=== PATIENT | female | born 1995 | race Caucasian/White ===

== ENCOUNTER 2017-08-05 23:47 | Emergency (ER) | payer OTHER ==
[~2017-08-05] VITALS: Ht 167.6 cm; Wt 75.3 kg
[~2017-08-05 23:47] MED LIST: CEFD300 PO; CEPH500 PO; Cleocin HCl150 MG PO; MAGIC MOUTHWASH; NAPR550 PO; Norco 5-325 Ta1 EACH PO; Percocet 5-3251 EACH PO
[2017-08-06] MEDS ORDERED: Verotin-Gr Cap1 EACH PO (00:02)
[2017-08-06 00:14] LABS: BASOPHILS ABSOLUTE AUTO 0.01 K/mm3 (0.00-0.23); BASOPHILS PERCENT AUTO 0 % (0-2); EOSINOPHILS ABSOLUTE AUTO 0.05 K/mm3 (0.00-0.68); EOSINOPHILS PERCENT AUTO 1 % (0-6); Hematocrit 35.9 % (33.0-51.0); Hemoglobin 12.3 g/dL (11.5-16.0); IMMATURE GRAN ABSOLUTE AUTO 0.04 K/mm3 (0.00-0.10); IMMATURE GRAN PERCENT AUTO 0 % (0-1); LYMPHOCYTES ABSOLUTE AUTO 2.94 K/mm3 (0.84-5.20); LYMPHOCYTES PERCENT AUTO 31 % (21-46); MONOCYTES ABSOLUTE AUTO 0.56 K/mm3 (0.16-1.47); MONOCYTES PERCENT AUTO 6 % (4-13); Mean Corpuscular HGB Conc 34.3 g/dL (31.5-36.5); Mean Corpuscular Volume 90 fL (80-100); Mean Platelet Volume 10.3 fL (9.1-12.4); NEUTROPHILS ABSOLUTE AUTO 5.95 K/mm3 (1.96-9.15); NEUTROPHILS PERCENT AUTO 62 % (41-73); Platelet Count 217 K/mm3 (150-400); RDW Coefficient Variation 12.5 % (11.7-14.2); RDW Standard Deviation 40.9 fL (35.1-46.3); Red Blood Cell Count 3.97 M/mm3 (3.80-5.20); White Blood Cell Count 9.55 K/mm3 (4.00-11.30)
[2017-08-06 00:31] LABS: Alanine Aminotransfer (ALT/SGP 29 U/L (12-78); Albumin/Globulin Ratio 0.8 (0.8-1.8); Alk Phos 56 U/L (50-136); Anion Gap 7 mmol/L (6-16); Aspartate Aminotrans (AST/SGOT 23 U/L (12-37); Bilirubin, Total 0.2 mg/dL (0.1-1.0); Blood Urea Nitrogen 11 mg/dL (8-24); Bun/Creatinine Ratio 19.2 (12.0-20.0); CO2, Blood 26 mmol/L (21-32); Calcium, Blood 8.8 mg/dL (8.5-10.1); Chloride, Blood 106 mmol/L (98-108); Creatinine, Blood 0.57 mg/dL (0.40-1.00); Glomerular Filtration Rate >60 (60-); Glucose, Blood 71 mg/dL (70-99); Potassium, Blood 3.5 mmol/L (3.5-5.5); Sodium, Blood 139 mmol/L (136-145)
== END 2017-08-06 01:06 | disposition home or self-care (01) ==
LOC: ER 23:47
PROVIDERS: Emergency Medicine
DX: O99.89 Other specified diseases and conditions complicating pregnancy, childbirth and the puerperium (principal); R55 Syncope and collapse; Z88.0 Allergy status to penicillin; Z79.899 Other long term (current) drug therapy; O99.332 Smoking (tobacco) complicating pregnancy, second trimester; F17.200 Nicotine dependence, unspecified, uncomplicated; Z3A.19 19 weeks gestation of pregnancy
CPT/HCPCS: 80053; 81000; 85025; 93005; 93010; 96360; 99284; J7030

== ENCOUNTER 2017-12-30 07:47 | Inpatient (IN) | payer OTHER ==
[~2017-12-30] VITALS: Ht 167.6 cm; Wt 100.0 kg
[~2017-12-30 07:47] MED LIST changes: +Verotin-Gr Cap1 EACH PO
[2017-12-30 08:52] LABS: BASOPHILS ABSOLUTE AUTO 0.01 K/mm3 (0.00-0.23); BASOPHILS PERCENT AUTO 0 % (0-2); EOSINOPHILS ABSOLUTE AUTO 0.04 K/mm3 (0.00-0.68); EOSINOPHILS PERCENT AUTO 1 % (0-6); Hematocrit 38.6 % (33.0-51.0); Hemoglobin 13.4 g/dL (11.5-16.0); IMMATURE GRAN ABSOLUTE AUTO 0.08 K/mm3 (0.00-0.10); IMMATURE GRAN PERCENT AUTO 1 % (0-1); LYMPHOCYTES ABSOLUTE AUTO 2.75 K/mm3 (0.84-5.20); LYMPHOCYTES PERCENT AUTO 33 % (21-46); MONOCYTES ABSOLUTE AUTO 0.69 K/mm3 (0.16-1.47); MONOCYTES PERCENT AUTO 8 % (4-13); Mean Corpuscular HGB 31.3 pg (26.0-34.0); Mean Corpuscular HGB Conc 34.7 g/dL (31.5-36.5); Mean Corpuscular Volume 90 fL (80-100); Mean Platelet Volume 11.8 fL (9.1-12.4); NEUTROPHILS ABSOLUTE AUTO 4.86 K/mm3 (1.96-9.15); NEUTROPHILS PERCENT AUTO 58 % (41-73); Platelet Count 187 K/mm3 (150-400); RDW Coefficient Variation 12.5 % (11.7-14.2); Red Blood Cell Count 4.28 M/mm3 (3.80-5.20); White Blood Cell Count 8.43 K/mm3 (4.00-11.30)
[2017-12-31 09:41] LABS: PCO2 Cord - Arterial 60.5 mmHg (40-50); PO2 Cord - Arterial 25.2 mmHg (16-20)
[2017-12-31 09:43] LABS: PCO2 Cord - Venous 57.1 mmHg (40-50); PO2 Cord - Venous 28.9 mmHg (28-32); pH Umbilical Cord - Venous 7.31 (7.26-7.35)
[2018-01-01 05:46] LABS: Hematocrit 28.8 % (33.0-51.0); Hemoglobin 9.9 g/dL (11.5-16.0); Mean Corpuscular HGB 31.3 pg (26.0-34.0); Mean Corpuscular HGB Conc 34.4 g/dL (31.5-36.5); Mean Corpuscular Volume 91 fL (80-100); Platelet Count 147 K/mm3 (150-400); RDW Coefficient Variation 12.9 % (11.7-14.2); RDW Standard Deviation 42.4 fL (35.1-46.3); Red Blood Cell Count 3.16 M/mm3 (3.80-5.20); White Blood Cell Count 12.99 K/mm3 (4.00-11.30)
[2018-01-02] MEDS ORDERED: Percocet 5-3251 EACH PO (10:55)
[2018-01-02] MEDS ORDERED: IBU800 MG PO (10:56)
== END 2018-01-02 13:40 | disposition home or self-care (01) | DRG 766 ==
LOC: BC 07:47
PROVIDERS: Nurse Practitioner Obstetrics & Gynecology; Obstetrics & Gynecology
PROC: 10907ZC Drainage of Amniotic Fluid, Therapeutic from Products of Conception, Via Natural or Artificial Opening (ICD-10-PCS; 2017-12-30)
PROC: 3E0P7VZ Introduction of Hormone into Female Reproductive, Via Natural or Artificial Opening (ICD-10-PCS; 2017-12-30)
PROC: 3E033VJ Introduction of Other Hormone into Peripheral Vein, Percutaneous Approach (ICD-10-PCS; 2017-12-30)
PROC: 4A1H7CZ Monitoring of Products of Conception, Cardiac Rate, Via Natural or Artificial Opening (ICD-10-PCS; 2017-12-30)
PROC: 10H073Z Insertion of Monitoring Electrode into Products of Conception, Via Natural or Artificial Opening (ICD-10-PCS; 2017-12-30)
PROC: 00HU33Z Insertion of Infusion Device into Spinal Canal, Percutaneous Approach (ICD-10-PCS; 2017-12-31)
PROC: 3E0R3BZ Introduction of Anesthetic Agent into Spinal Canal, Percutaneous Approach (ICD-10-PCS; 2017-12-31)
PROC: 10D00Z1 Extraction of Products of Conception, Low, Open Approach (ICD-10-PCS; principal; 2017-12-31 08:45)
DX: O99.334 Smoking (tobacco) complicating childbirth (principal); F17.200 Nicotine dependence, unspecified, uncomplicated; O76 Abnormality in fetal heart rate and rhythm complicating labor and delivery; O32.4XX0 Maternal care for high head at term, not applicable or unspecified; Z3A.40 40 weeks gestation of pregnancy; Z37.0 Single live birth; Z88.0 Allergy status to penicillin; Z88.1 Allergy status to other antibiotic agents
CPT/HCPCS: 36415; 51702; 82803; 85025; 85027; 86850; 86900; 86901; J0330; J0690; J1885; J2590; J2710; J2765; J3010; J7120

== ENCOUNTER → 2018-02-03 | Outpatient (CLI) | payer OTHER ==
[~2018-02-03] MED LIST changes: +HYDR1TAB94 PO; +IBU800 MG PO; +LOPE2C PO; +Zofran8 MG PO
[2018-02-03 11:52] LABS: Hematocrit 37.4 % (33.0-51.0); Hemoglobin 12.9 g/dL (11.5-16.0); Mean Corpuscular HGB 30.6 pg (26.0-34.0); Mean Corpuscular HGB Conc 34.5 g/dL (31.5-36.5); Mean Corpuscular Volume 89 fL (80-100); Mean Platelet Volume 10.1 fL (9.1-12.4); Platelet Count 187 K/mm3 (150-400); RDW Coefficient Variation 12.5 % (11.7-14.2); RDW Standard Deviation 40.6 fL (35.1-46.3); Red Blood Cell Count 4.22 M/mm3 (3.80-5.20); White Blood Cell Count 5.58 K/mm3 (4.00-11.30)
[2018-02-03 13:22] LABS: BASOPHILS PERCENT MAN 0 % (0-2); EOSINOPHILS PERCENT MAN 0 % (0-6); LYMPHOCYTES ABSOLUTE MAN 2.17 K/mm3 (0.84-5.20); LYMPHOCYTES PERCENT MAN 39 % (21-46); MONOCYTES ABSOLUTE MAN 0.27 K/mm3 (0.16-1.47); MONOCYTES PERCENT MAN 5 % (4-13); SEG NEUTROPHILS PERCENT MAN 24 % (41-73); TOTAL CELLS COUNTED 100
[2018-02-03 13:23] LABS: BAND PERCENT MAN 32 % (0-8); NEUTROPHILS ABSOLUTE MAN 3.12 K/mm3 (1.96-9.15)
== END ==
LOC: LAB EV 11:47 → LAB SHORT 11:47
PROVIDERS: Physician Assistant
DX: R19.5 Other fecal abnormalities (principal)
CPT/HCPCS: 85025

== ENCOUNTER 2018-02-04 15:29 | Emergency (ER) | payer OTHER ==
[~2018-02-04] VITALS: Ht 167.6 cm; Wt 85.3 kg
[~2018-02-04 15:29] MED LIST changes: -HYDR1TAB94 PO; -LOPE2C PO; -Zofran8 MG PO
[2018-02-04 16:01] LABS: Hematocrit 38.4 % (33.0-51.0); Hemoglobin 13.4 g/dL (11.5-16.0); Mean Corpuscular HGB Conc 34.9 g/dL (31.5-36.5); Mean Platelet Volume 10.1 fL (9.1-12.4); Platelet Count 248 K/mm3 (150-400); RDW Coefficient Variation 12.1 % (11.7-14.2); RDW Standard Deviation 38.5 fL (35.1-46.3); Red Blood Cell Count 4.47 M/mm3 (3.80-5.20); White Blood Cell Count 6.27 K/mm3 (4.00-11.30)
[2018-02-04 16:02] LABS: Mean Corpuscular Volume 86 fL (80-100)
[2018-02-04 16:12] LABS: U Amphetamine Screen Not Detected; U Barbituate Screen Not Detected; U Benzodiazapine Screen Not Detected; U Buprenorphine Screen Not Detected; U Cannabinoids Screen Not Detected; U Cocaine Screen Not Detected; U Methadone Screen Not Detected; U Methamphetamine Screen Not Detected; U Opiates Screen Not Detected; U Oxycodone Screen Not Detected; U Phencyclidine Screen Not Detected; U Propoxyphene Screen Not Detected
[2018-02-04 16:20] LABS: Adenovirus F 40/41 Not Detected (NOT DETECT); Astrovirus Not Detected (NOT DETECT); Campylobacter Sp Not Detected (NOT DETECT); Cryptosporidium Not Detected (NOT DETECT); Cyclospora Cayetanensis Not Detected (NOT DETECT); E. Coli O157 Not Detected (NOT DETECT); Entamoeba Histolytica Not Detected (NOT DETECT); Enteroaggregative E. coli-EAEC Not Detected (NOT DETECT); Enteropathogenic E. coli-EPEC Not Detected (NOT DETECT); Enterotoxigenic E. coli-ETEC Not Detected (NOT DETECT); Giardia Lamblia Not Detected (NOT DETECT); Norovirus GI/GII Not Detected (NOT DETECT); Plesiomonas Shigelloides Not Detected (NOT DETECT); Rotavirus A Not Detected (NOT DETECT); Sapovirus Not Detected (NOT DETECT); Shiga Toxin-prod E. coli-STEC Not Detected (NOT DETECT); Shigella/Enteroin E. coli-EIEC Not Detected (NOT DETECT); Vibrio Cholerae Not Detected (NOT DETECT); Vibrio Sp Not Detected (NOT DETECT); Yersinia Enterocolitica Not Detected (NOT DETECT)
[2018-02-04 16:24] LABS: BAND PERCENT MAN 8 % (0-8); BASOPHILS PERCENT MAN 0 % (0-2); EOSINOPHILS PERCENT MAN 0 % (0-6); LYMPHOCYTES ABSOLUTE MAN 2.25 K/mm3 (0.84-5.20); LYMPHOCYTES PERCENT MAN 36 % (21-46); MONOCYTES ABSOLUTE MAN 0.87 K/mm3 (0.16-1.47); MONOCYTES PERCENT MAN 14 % (4-13); NEUTROPHILS ABSOLUTE MAN 3.13 K/mm3 (1.96-9.15); SEG NEUTROPHILS PERCENT MAN 42 % (41-73); TOTAL CELLS COUNTED 100
[2018-02-04 16:40] LABS: Albumin, Blood 3.7 g/dL (3.4-5.0); Albumin/Globulin Ratio 0.8 (0.8-1.8); Bilirubin, Total 0.5 mg/dL (0.1-1.0); Bun/Creatinine Ratio 15.3 (12.0-20.0); Creatinine, Blood 1.24 mg/dL (0.40-1.00); Globulin, Blood 4.5 g/dL (2.2-4.0); Potassium, Blood 3.4 mmol/L (3.5-5.5); Total Protein, Blood 8.2 g/dL (6.4-8.2)
[2018-02-04] MEDS ORDERED: HYDR1TAB94 PO (17:12)
[2018-02-04] MEDS ORDERED: Zofran8 MG PO (17:12)
[2018-02-04] MEDS ORDERED: LOPE2C PO (17:12)
[2018-02-04 18:34] LABS: Salmonella Sp Detected (NOT DETECT)
== END 2018-02-04 17:37 | disposition home or self-care (01) ==
LOC: ER 15:29
PROVIDERS: Emergency Medicine
DX: O99.63 Diseases of the digestive system complicating the puerperium (principal); K92.1 Melena; O99.89 Other specified diseases and conditions complicating pregnancy, childbirth and the puerperium; R19.7 Diarrhea, unspecified; Z39.1 Encounter for care and examination of lactating mother; Z88.0 Allergy status to penicillin; Z87.891 Personal history of nicotine dependence
CPT/HCPCS: 36415; 80053; 85025; 87507; 96374; 96375; 99284-25; J2405; J3010; J7120

== ENCOUNTER 2024-07-03 20:39 | Emergency (ER) | payer SELFPAY ==
[~2024-07-03] VITALS: Ht 165.1 cm; Wt 86.2 kg
[~2024-07-03 20:39] MED LIST changes: +HYDR1TAB94 PO; +LOPE2C PO; +Zofran8 MG PO
[2024-07-03 21:31] LABS: BASOPHILS ABSOLUTE AUTO 0.03 K/mm3 (0.00-0.23); BASOPHILS PERCENT AUTO 0 % (0-2); EOSINOPHILS ABSOLUTE AUTO 0.03 K/mm3 (0.00-0.68); EOSINOPHILS PERCENT AUTO 0 % (0-6); Hematocrit 38.8 % (33.0-51.0); Hemoglobin 13.8 g/dL (11.5-16.0); IMMATURE GRAN ABSOLUTE AUTO 0.03 K/mm3 (0.00-0.10); IMMATURE GRAN PERCENT AUTO 0 % (0-1); LYMPHOCYTES ABSOLUTE AUTO 2.94 K/mm3 (0.84-5.20); LYMPHOCYTES PERCENT AUTO 25 % (21-46); MONOCYTES PERCENT AUTO 6 % (4-13); Mean Corpuscular HGB 31.2 pg (26.0-34.0); Mean Corpuscular HGB Conc 35.6 g/dL (31.5-36.5); Mean Corpuscular Volume 88 fL (80-100); NEUTROPHILS ABSOLUTE AUTO 7.88 K/mm3 (1.96-9.15); NEUTROPHILS PERCENT AUTO 68 % (41-73); Platelet Count 208 K/mm3 (150-400); RDW Standard Deviation 38.6 fL (35.1-46.3); Red Blood Cell Count 4.42 M/mm3 (3.80-5.20); White Blood Cell Count 11.61 K/mm3 (4.00-11.30)
[2024-07-03 22:17] LABS: Albumin, Blood 3.7 g/dL (3.4-5.0); Bilirubin, Total 0.3 mg/dL (0.1-1.0); Bun/Creatinine Ratio 15.3 (12.0-20.0); Calcium, Blood 9.4 mg/dL (8.5-10.1); Creatinine, Blood 0.65 mg/dL (0.40-1.00); Globulin, Blood 3.6 g/dL (2.2-4.0); Potassium, Blood 3.9 mmol/L (3.5-5.5); Total Protein, Blood 7.3 g/dL (6.4-8.2)
[2024-07-03 22:42] LABS: Source, Urine Clean Catch
[2024-07-03 22:48] LABS: Bilirubin, Urine Neg (Neg); Blood, Urine Neg (Neg); Glucose Qualitative, Urine Neg (Neg); Ketones, Urine 3+ (Neg); Leukocyte Esterase, Urine Neg (Neg); Nitrite, Urine Neg (Neg); Protein, Urine Neg (Neg); Urobilinogen, Urine NORM (Normal)
[2024-07-03 22:51] LABS: Appearance, Urine Hazy (Clear); Color, Urine Yellow (P-Yellow)
[2024-07-03 22:52] LABS: Amorphous Heavy (0-Heavy); Bacteria Few /hpf; Red Blood Cells, Urine Not Seen /hpf (0-2); Squamous Epithelial Cells Few /hpf (Few); White Blood Cells, Urine 0-2 /hpf (0-5)
[2024-07-04 01:33] VITALS: BP 106/64
== END 2024-07-04 01:33 | disposition home or self-care (01) ==
LOC: ER 20:39
PROVIDERS: Emergency Medicine
DX: O20.8 Other hemorrhage in early pregnancy (principal); Z3A.11 11 weeks gestation of pregnancy; Z88.0 Allergy status to penicillin
CPT/HCPCS: 76801; 80053; 81001; 84702; 85025; 86900; 86901; 99284-25

== ENCOUNTER → 2024-07-27 | Outpatient (CLI) | payer OTHER ==
[2024-07-30 12:34] LABS: APTIMA MEDIA TYPE Urine; C. TRACHOMATIS BY TMA Negative (Negative); N. GONORRHOEAE BY TMA Negative (Negative); SPECIMEN SOURCE Urine
== END ==
LOC: LAB SHORT 16:59 → LAB 16:59
PROVIDERS: Obstetrics & Gynecology
DX: Z11.3 Encounter for screening for infections with a predominantly sexual mode of transmission (principal)
CPT/HCPCS: 87491; 87591

== ENCOUNTER 2025-01-19 05:22 | Inpatient (IN) | payer OTHER ==
[2025-01-18 14:30] LABS: BASOPHILS ABSOLUTE AUTO 0.02 K/mm3 (0.00-0.23); BASOPHILS PERCENT AUTO 0 % (0-2); EOSINOPHILS ABSOLUTE AUTO 0.05 K/mm3 (0.00-0.68); EOSINOPHILS PERCENT AUTO 1 % (0-6); Hematocrit 36.5 % (33.0-51.0); Hemoglobin 12.2 g/dL (11.5-16.0); IMMATURE GRAN ABSOLUTE AUTO 0.05 K/mm3 (0.00-0.10); IMMATURE GRAN PERCENT AUTO 1 % (0-1); LYMPHOCYTES ABSOLUTE AUTO 2.10 K/mm3 (0.84-5.20); LYMPHOCYTES PERCENT AUTO 27 % (21-46); MONOCYTES ABSOLUTE AUTO 0.48 K/mm3 (0.16-1.47); MONOCYTES PERCENT AUTO 6 % (4-13); Mean Corpuscular HGB Conc 33.4 g/dL (31.5-36.5); Mean Corpuscular Volume 89 fL (80-100); NEUTROPHILS ABSOLUTE AUTO 5.15 K/mm3 (1.96-9.15); NEUTROPHILS PERCENT AUTO 66 % (41-73); NRBC ABSOLUTE 0.00 K/mm3 (0.00-0.02); NRBC Auto 0.0 /100 WBC (0.0-0.2); Platelet Count 183 K/mm3 (150-400); RDW Coefficient Variation 13.2 % (11.7-14.2); RDW Standard Deviation 42.2 fL (35.1-46.3)
[~2025-01-19] VITALS: Ht 165.1 cm; Wt 106.8 kg
[2025-01-19] VITALS (19 sets, daily range): BP systolic 87–109; BP diastolic 51–70
[2025-01-19] MEDS ORDERED: CeFAZolin Sodium 2,000 MG in NS 100 ML IV SCH (06:05)
[2025-01-19] MEDS ORDERED: Citric Acid/Sodium Citrate 30 ML BTL PO PRN (06:10)
[2025-01-19] MEDS ORDERED: Metoclopramide HCl 5MG / ML 2ML Vial IV PRN (06:10)
[2025-01-19] MEDS ORDERED: Oxytocin 10 Unit / ML Vial ONE (07:18)
[2025-01-19] MEDS ORDERED: Ketorolac Tromethamine 30mg Vial ONE (07:19)
[2025-01-19] MEDS ORDERED: Phenylephrine HCl 100 MCG/ML-NS 10MLSYR (1MG/10ML) ONE (07:19)
[2025-01-19] MEDS ORDERED: Dexamethasone Sod Phos 10 MG/ML 1ML VIAL ONE (07:54)
[2025-01-19] MEDS ORDERED: Methylergonovine Maleate 0.2MG / ML 1ML Amp IM PRN (08:45)
[2025-01-19] MEDS ORDERED: Magnesium Hydroxide Conc 10 ML UDC PO PRN (08:45)
[2025-01-19] MEDS ORDERED: OXYTOCIN/RINGER'S LACTATE 500 ML IV SCH (08:50)
[2025-01-19] MEDS ORDERED: Ondansetron HCl 2 MG / ML 2ML Vial IV PRN (08:50)
[2025-01-19] MEDS ORDERED: Carboprost Tromethamine 250 MCG/ML 1ML Amp IM PRN (08:50)
[2025-01-19] MEDS ORDERED: Prenatal Vit/FE Fumarate/FA 1 Tab PO SCH (09:00)
[2025-01-19] MEDS ORDERED: Ketorolac Tromethamine 30mg Vial IV SCH (09:00)
[2025-01-20 03:18] VITALS: BP 100/58
[2025-01-20 06:30] LABS: BASOPHILS ABSOLUTE AUTO 0.01 K/mm3 (0.00-0.23); BASOPHILS PERCENT AUTO 0 % (0-2); EOSINOPHILS ABSOLUTE AUTO 0.05 K/mm3 (0.00-0.68); EOSINOPHILS PERCENT AUTO 1 % (0-6); Hematocrit 32.3 % (33.0-51.0); Hemoglobin 10.7 g/dL (11.5-16.0); IMMATURE GRAN ABSOLUTE AUTO 0.05 K/mm3 (0.00-0.10); IMMATURE GRAN PERCENT AUTO 1 % (0-1); LYMPHOCYTES ABSOLUTE AUTO 2.97 K/mm3 (0.84-5.20); LYMPHOCYTES PERCENT AUTO 28 % (21-46); MONOCYTES ABSOLUTE AUTO 0.75 K/mm3 (0.16-1.47); MONOCYTES PERCENT AUTO 7 % (4-13); Mean Corpuscular HGB Conc 33.1 g/dL (31.5-36.5); Mean Corpuscular Volume 90 fL (80-100); NEUTROPHILS ABSOLUTE AUTO 6.63 K/mm3 (1.96-9.15); NEUTROPHILS PERCENT AUTO 63 % (41-73); NRBC ABSOLUTE 0.00 K/mm3 (0.00-0.02); NRBC Auto 0.0 /100 WBC (0.0-0.2); Platelet Count 167 K/mm3 (150-400); RDW Coefficient Variation 13.3 % (11.7-14.2); RDW Standard Deviation 43.2 fL (35.1-46.3)
[2025-01-20 07:43] VITALS: BP 102/61
[2025-01-20 12:23] VITALS: BP 103/58
--- NOTE | 2025-01-20 12:37 | NUR ---
EPDS 10. DISCUSSED WITH PATIENT, SHE STATES SHE HAS FELT THIS WAY FOR A WHILE AND IS NOT INTERESTED IN THERAPY. PROVIDED EDUCATION ON WARNING SIGNS TO CONTACT PROVIDER OR 911, PROVIDED RESOURCES. CASE MANAGEMENT CONSULTED, WILL ROUND THIS AFTERNOON, PT AWARE. NOTIFIED AND SHE CONFIRMED PT HAS AN APPT SCHEDULED WITHIN 2 WEEKS.
[2025-01-20 17:05] VITALS: BP 118/65
[2025-01-20 20:00] VITALS: BP 101/54
[2025-01-21 00:11] VITALS: BP 103/59
[2025-01-21 00:38] VITALS: BP 102/50
[2025-01-21 03:50] VITALS: BP 106/60
[2025-01-21 08:04] VITALS: BP 99/54
== END 2025-01-21 11:53 | disposition home or self-care (01) | DRG 788 ==
LOC: BC 05:32
PROVIDERS: ADMIT Obstetrics & Gynecology
PROC: 10D00Z1 Extraction of Products of Conception, Low, Open Approach (ICD-10-PCS; principal; 2025-01-19 07:30)
DX: O34.211 Maternal care for low transverse scar from previous cesarean delivery (principal); Z37.0 Single live birth; Z3A.39 39 weeks gestation of pregnancy; O99.62 Diseases of the digestive system complicating childbirth; K66.0 Peritoneal adhesions (postprocedural) (postinfection); Z88.0 Allergy status to penicillin; Z88.1 Allergy status to other antibiotic agents
CPT/HCPCS: 36415; 85025; 86850; 86900; 86901; 86923; 99211; A9270; J1100; J1885; J2371; J2590; J7120